=== PATIENT | male | born 1980 | race Caucasian/White ===

== ENCOUNTER 2017-05-19 13:55 | Emergency (ER) | payer BC ==
[~2017-05-19] VITALS: Ht 182.9 cm; Wt 98.4 kg
[~2017-05-19 13:55] MED LIST: ALLERGY RELF10 M1 PO; AMOXICILLIN/CL875 MG OR; AMOXICILLIN500 MG PO; AUGMENTIN875TAB PO; CIPROFLOXACN500 MG PO; CROMOLYN SOD4 % OU; DOXYCYCL HYC100 MG PO; FLONASE NASAL50 MCG; KEFLEX500 MG PO; MEDDOSEPAK PO; METRONIDAZOL500 MG PO; PRILOSEC10 M1 OR; SOLU-MEDROL125 MG IM; STROMECTOL3 MG OR; SUDAFED PO; TRAMADOL HCL50 MG PO; ULTRAVATE0.051 EX; ZYRTEC ALLERGY10 MG OR
[2017-05-19 14:55] LABS: HEMATOCRIT 49.3 % (39.0-50.0); HEMOGLOBIN 16.6 g/dl (14.0-18.0); IMMATURE GRANULOCYTES 0.1 % (0.0-1.0); MEAN CELL VOLUME 85.1 fL CALC (80.0-100.0); MEAN CORPUSCULAR HGB 28.7 pG CALC (26.0-32.0); MEAN CORPUSCULAR HGB CONC 33.7 g/L CALC (32.0-36.0); NEUT# 4.06 thou/uL (1.82-7.42); RED BLOOD COUNT 5.79 mill/uL (4.70-6.10); RED CELL DISTRI WIDTH 13.1 % (11.5-15.5)
[2017-05-19 15:05] LABS: ALBUMIN 4.6 g/dL (3.2-5.0); ALKALINE PHOSPHATASE 64 u/l (38-126); ANION GAP 17 (6-22 (CALC)); BILIRUBIN, TOTAL 0.8 mg/dL (0.0-1.4); BUN 19 mg/dL (9-20); BUN/CREATININE RATIO 20 (12-20 (CALC)); CALCIUM 10.6 mg/dL (8.4-10.2); CARBON DIOXIDE 27 mmol/l (22-30); CHLORIDE 103 mmol/l (95-108); GFR > 60 ML/MIN (>=60 (CALC)); GFR FOR AFR.AMER. > 60 ML/MIN (>=60 (CALC)); GLUCOSE 95 mg/dL (75-110); POTASSIUM 4.1 mmol/l (3.5-5.1); SGOT/AST 25 u/l (17-59); SGPT/ALT 49 u/l (21-72); SODIUM 143 mmol/l (137-146); TOTAL PROTEIN 7.3 g/dL (6.3-8.2)
[2017-05-19 15:20] LABS: URINE BILIRUBIN - DIPSTICK NEGATIVE (NEGATIVE); URINE BLOOD DIPSTICK NEGATIVE (NEGATIVE); URINE COLOR YELLOW; URINE GLUCOSE - DIPSTICK NEGATIVE (NEGATIVE); URINE KETONE NEGATIVE (NEGATIVE); URINE LEUK ESTERASE NEGATIVE (NEGATIVE); URINE NITRITE - DIPSTICK NEGATIVE (Negative); URINE PH 6.5 (4.5-8.0); URINE PROTEIN - DIPSTICK NEGATIVE (NEG-TRACE); URINE SPECIFIC GRAVITY 1.025; URINE UROBILINOGEN - DIPSTICK 0.2 E.U./dL (0.2)
[2017-05-19 15:21] LABS: URINE CLARITY CLEAR
[2017-05-19] MEDS ORDERED: FLEXERIL PO (16:51)
[2017-05-19] MEDS ORDERED: TORADOL PO (16:51)
[2017-05-19 17:03] VITALS: BP 130/97
== END 2017-05-19 17:03 | disposition home or self-care (01) | DRG 392 ==
LOC: ED 13:55
PROVIDERS: Emergency Medicine
DX: R10.11 Right upper quadrant pain (principal); S39.011A Strain of muscle, fascia and tendon of abdomen, initial encounter; X58.XXXA Exposure to other specified factors, initial encounter
CPT/HCPCS: Q9967

== ENCOUNTER 2021-09-28 01:10 | Emergency (ER) | payer BC ==
[~2021-09-28] VITALS: Ht 182.9 cm; Wt 104.5 kg
[~2021-09-28 01:10] MED LIST changes: +FLEXERIL PO; +TORADOL PO
[2021-09-28] MEDS ORDERED: CVS OMEPRAZOLE20 M1 PO (01:28)
[2021-09-28 01:31] VITALS: BP 134/103
[2021-09-28 01:45] VITALS: BP 138/98
[2021-09-28 02:01] VITALS: BP 117/90
[2021-09-28] MEDS ORDERED: MOTRIN800 MG PO (02:10)
[2021-09-28 02:15] VITALS: BP 124/87
== END 2021-09-28 02:20 | disposition home or self-care (01) | DRG 605 ==
LOC: ED 01:10
DX: S80.12XA Contusion of left lower leg, initial encounter (principal); F17.290 Nicotine dependence, other tobacco product, uncomplicated; W55.42XA Struck by pig, initial encounter; Y93.89 Activity, other specified; Y92.74 Orchard as the place of occurrence of the external cause